=== PATIENT | male | born 1955 | race Caucasian/White ===

== ENCOUNTER 2016-06-06 08:51 | Inpatient (IN) | payer OTHER ==
[2016-06-06] VITALS (11 sets, daily range): BP systolic 74–125; BP diastolic 38–66
[~2016-06-06] VITALS: Ht 175.3 cm; Wt 125.0 kg
[~2016-06-06 08:51] MED LIST: ADIPEX-P37.5 MG PO; ALLOPURINOL100 MG PO; AMBIEN CR12.5 MG PO; ASPIRIN325 MG PO; ATORVASTATIN CA20 MG PO; CENTRUM SILVER1 EAC3 PO; CONTRAVE ER 8-1 EACH PO; CYANOCOBALAM1000 MCG PO; DILAUDID4 MG PO; FLONASE16 G1 BOTH NARES; FUROSEMIDE40 MG PO; INDOCIN50 MG PO; INDOMETHACIN50 MG PO; LASIX40 MG PO; LEVAQUIN500 MG PO; LOSARTAN POTAS100 MG PO; METOPROLOL TAR100 MG PO; MULTIVITAMIN1 EAC2 PO; NEURONTIN100 MG PO; NITROSTAT0.4 MG SL; OXYCODONE-APAP1 EACH PO; PANTOPRAZOLE SO40 MG PO; PHENERGAN DM SYR1 ML PO; POTASSIUM GLUCO2 MEQ PO; PROTONIX40 MG PO; SEROQUEL12.5 MG PO; VITAMIN D31000 UNI2 PO; VITAMIN D35000 UNIT PO
[2016-06-06] MEDS ORDERED: ASPIRIN325 MG PO (09:45)
[2016-06-06] MEDS ORDERED: HYDROCODON-ACE1 EAC7 PO (14:28)
[2016-06-06 19:03] LABS: METH RESISTANT S AUREUS PCR NEGATIVE (NEGATIVE)
[2016-06-06 19:14] LABS: PROBE CHECK PASS; SPECIMEN PROCESSING CONTROL PASS
[2016-06-07] VITALS (10 sets, daily range): BP systolic 88–118; BP diastolic 46–65
== END 2016-06-07 18:01 | disposition home or self-care (01) | DRG 27 ==
LOC: 4WEST 08:51 → 2SOUTH 08:51 → 4WEST 16:49 → 4EAST 06-07 15:39
PROVIDERS: Surgery
DX: I65.29 Occlusion and stenosis of unspecified carotid artery (principal); H53.2 Diplopia; N18.9 Chronic kidney disease, unspecified; Z86.73 Personal history of transient ischemic attack (TIA), and cerebral infarction without residual deficits; Z88.8 Allergy status to other drugs, medicaments and biological substances; I12.9 Hypertensive chronic kidney disease with stage 1 through stage 4 chronic kidney disease, or unspecified chronic kidney disease; I25.10 Atherosclerotic heart disease of native coronary artery without angina pectoris; R00.0 Tachycardia, unspecified; R29.810 Facial weakness
CPT/HCPCS: 70450; 87641; 93005; C1768; J0330; J0690; J1100; J1170; J1644; J2250; J2370; J2405; J2720; J2795; J3010; J7120

== ENCOUNTER 2017-12-30 07:09 | Observation (INO) | payer OTHER ==
[~2017-12-30] VITALS: Ht 175.3 cm; Wt 119.1 kg
[~2017-12-30 07:09] MED LIST changes: +HYDROCODON-ACE1 EAC7 PO; +LO-DOSE ASPIRIN81 M2 PO; -NEURONTIN100 MG PO; +NEURONTIN400 MG PO; -PANTOPRAZOLE SO40 MG PO; +PROTONIX20 MG PO
[2017-12-30 07:41] LABS: HEMATOCRIT 35.6 % (38.0-50.0); HEMOGLOBIN 12.6 G/DL (12.5-16.6); MCH 30.9 PG (29.0-34.0); MCHC 35.4 G/DL (30.0-36.0); MCV 87.3 FL (86-99); PLATELET COUNT 248 K/uL (156-360); RBC DIS.WIDTH-CV 13.3 % (11.8-14.6); RBC DIS.WIDTH-SD 42.4 % (39-53); RED BLOOD COUNT 4.08 M/uL (4.00-5.50); WHITE BLOOD COUNT 10.5 K/uL (4.1-10.2)
[2017-12-30 08:00] LABS: TROP-I INTERPRETATION NEGATIVE; TROPONIN-I 0.03 ng/mL (0.0-0.30)
[2017-12-30 08:03] LABS: CHLORIDE 97 MEQ/L (99-109); GFR ESTIMATE (CALCULATED) > 59 mL/min/ (58.99-99999); GLUCOSE 129 mg/dL (70-99); POTASSIUM 2.8 MEQ/L (3.7-5.4); SODIUM 134 MEQ/L (136-147); UREA NITROGEN (BUN) 18 mg/dL (9-23)
[2017-12-30 08:15] LABS: THYROTROPIN (TSH) 1.5 MIU/L (0.4-5.5)
[2017-12-30] MEDS ORDERED: LASIX40 MG PO (09:24)
[2017-12-30] MEDS ORDERED: CRESTOR5 MG PO (09:26)
[2017-12-30] MEDS ORDERED: INDOCIN50 MG PO (09:27)
[2017-12-30] MEDS ORDERED: XARELTO20 MG PO (09:27)
[2017-12-30 13:05] VITALS: BP 126/100
[2017-12-30 15:11] VITALS: BP 155/75
[2017-12-30 15:16] LABS: TROP-I INTERPRETATION NEGATIVE; TROPONIN-I 0.13 ng/mL (0.0-0.30)
[2017-12-30 20:03] VITALS: BP 143/70
[2017-12-30 20:51] LABS: TROP-I INTERPRETATION NEGATIVE
[2017-12-31] VITALS: BP 143/73
[2017-12-31 05:10] VITALS: BP 178/85
[2017-12-31 05:47] LABS: CREATININE 0.9 MG/DL (0.6-1.3); GFR ESTIMATE (CALCULATED) > 59 mL/min/ (58.99-99999); GLUCOSE 103 mg/dL (70-99); SODIUM 140 MEQ/L (136-147); UREA NITROGEN (BUN) 19 mg/dL (9-23)
[2017-12-31 05:57] LABS: CHLORIDE 107 MEQ/L (99-109); POTASSIUM 4.1 MEQ/L (3.7-5.4)
[2017-12-31 08:00] VITALS: BP 163/81
[2017-12-31] MEDS ORDERED: NEURONTIN400 MG PO (08:46)
[2017-12-31] MEDS ORDERED: LOPRESSOR100 M1 PO (10:40)
== END 2017-12-31 11:33 | disposition home or self-care (01) ==
LOC: EME 07:09 → EDOF 11:33 → 4SOUTH 11:33 → ENRESERV 11:34 → 4SOUTH 12:58
PROVIDERS: Emergency Medicine; Physician Assistant
DX: R07.9 Chest pain, unspecified (principal); I25.10 Atherosclerotic heart disease of native coronary artery without angina pectoris; F10.10 Alcohol abuse, uncomplicated; E87.6 Hypokalemia; I12.9 Hypertensive chronic kidney disease with stage 1 through stage 4 chronic kidney disease, or unspecified chronic kidney disease; N18.9 Chronic kidney disease, unspecified; E78.5 Hyperlipidemia, unspecified; Z87.891 Personal history of nicotine dependence; E66.9 Obesity, unspecified; R94.31 Abnormal electrocardiogram [ECG] [EKG]; I25.82 Chronic total occlusion of coronary artery; I48.0 Paroxysmal atrial fibrillation; I65.29 Occlusion and stenosis of unspecified carotid artery; Z98.890 Other specified postprocedural states; K21.9 Gastro-esophageal reflux disease without esophagitis; Z86.73 Personal history of transient ischemic attack (TIA), and cerebral infarction without residual deficits; Z87.19 Personal history of other diseases of the digestive system; F41.0 Panic disorder [episodic paroxysmal anxiety]; F32.9 Major depressive disorder, single episode, unspecified; M10.9 Gout, unspecified; Z95.1 Presence of aortocoronary bypass graft; Z79.82 Long term (current) use of aspirin; Z88.8 Allergy status to other drugs, medicaments and biological substances
CPT/HCPCS: 71045; 80048; 83735; 83880; 84443; 84484; 85027; 93005; 99281; 99285; G0378; J2060